=== PATIENT | male | born 1985 | race Hispanic/Latino ===

== ENCOUNTER 2020-06-25 19:27 | Emergency (ER) | payer OTHER ==
[2020-06-25] MEDS ORDERED: PREDNISONE 20 MG TABLET ONE (20:33)
== END 2020-06-25 20:51 | disposition home or self-care (01) ==
LOC: EDH 19:27
DX: R21 Rash and other nonspecific skin eruption (principal); B02.9 Zoster without complications; Z87.891 Personal history of nicotine dependence

== ENCOUNTER 2020-07-03 06:05 | Emergency (ER) | payer OTHER ==
[2020-07-03] MEDS ORDERED: CLINDAMYCIN HCL 150 MG CAP ONE (07:10)
[2020-07-03] MEDS ORDERED: LIDOCAINE HCL-MPF 1% 2ML VIAL ONE (07:11)
[2020-07-03] MEDS ORDERED: CEFTRIAXONE SODIUM 1 GM ONE (07:11)
[2020-07-03] MEDS ORDERED: LIDOCAINE HCL 2% JELLY 5 ML ONE (07:11)
[2020-07-03] MEDS ORDERED: KETOROLAC TROMETHAMINE 60 MG/2 ML VIAL ONE (07:11)
== END 2020-07-03 07:35 | disposition home or self-care (01) ==
LOC: EDH 06:05
DX: K04.7 Periapical abscess without sinus (principal); K00.6 Disturbances in tooth eruption; Z72.0 Tobacco use
CPT/HCPCS: 96372 ×2; 99284; J0696; J1885; J3490

== ENCOUNTER 2021-08-20 13:37 | Emergency (ER) | payer OTHER ==
[~2021-08-20] VITALS: Ht 172.7 cm; Wt 65.8 kg
[2021-08-20] MEDS ORDERED: IBUPROFEN 600 MG TABLET PO ONE (14:00)
[2021-08-20] MEDS ORDERED: IBUPROFEN 600 MG TABLET ONE (14:00)
[2021-08-20] MEDS ORDERED: IBUP-2070 PO (14:19)
[2021-08-20 14:29] VITALS: BP 122/76
== END 2021-08-20 14:29 | disposition home or self-care (01) ==
LOC: EDH 13:37
DX: S43.102A Unspecified dislocation of left acromioclavicular joint, initial encounter (principal); J45.909 Unspecified asthma, uncomplicated; F17.200 Nicotine dependence, unspecified, uncomplicated; Z79.1 Long term (current) use of non-steroidal anti-inflammatories (NSAID); W20.8XXA Other cause of strike by thrown, projected or falling object, initial encounter; Y93.89 Activity, other specified; Y92.89 Other specified places as the place of occurrence of the external cause; Y99.8 Other external cause status
CPT/HCPCS: 73020